=== PATIENT | male | born 1945 | race Caucasian/White ===

== ENCOUNTER 2025-08-29 07:15 | Outpatient (RCR) | payer OTHER, SELFPAY | END 2025-09-06 08:33 | disposition home or self-care (01) | LOC: ANHCPREHAB 07:15 | PROVIDERS: PCP Family Medicine; Visit Provider Internal Medicine Cardiovascular Disease | DX: Z51.89 Encounter for other specified aftercare (principal); Z95.2 Presence of prosthetic heart valve; Z98.61 Coronary angioplasty status | CPT/HCPCS: 93798 ==